=== PATIENT | female | born 1965 | race Caucasian/White ===

== ENCOUNTER 2023-11-16 09:03 | Outpatient (CLI) | payer BC, SELFPAY ==
--- NOTE | 2023-11-16 09:11 | XR_ITS ---
FINAL REPORT CLINICAL HISTORY: Foot Pain FINDINGS: RIGHT FOOT 3 views of the right foot were obtained. There is no acute fracture or dislocation. There are advanced degenerative changes at the first MTP joint. No acute soft tissue abnormality is seen. IMPRESSION: Advanced degenerative changes of the first MTP joint. Reviewed, Interpreted and Dictated by Mary Chang MD Transcribed by Arlene Pedroza Authenticated and . [facility]
--- NOTE | 2023-11-16 09:11 | XR_ITS ---
FINAL REPORT CLINICAL HISTORY: Foot Pain FINDINGS: LEFT FOOT Three views of the left foot demonstrate no acute fracture or dislocation. There are postoperative changes of prior bunionectomy. Degenerative disease is seen, most pronounced at the first MTP joint. IMPRESSION: Postoperative and degenerative changes as above. Reviewed, Interpreted and Dictated by Mary Chang MD Transcribed by Arlene Pedroza Authenticated and [facility]
--- NOTE | 2023-11-16 11:32 | ECG_ITS ---
APPROVED REPORT Exam: Resting ECG HR:57 bpm ECG Measurements Heart Rate 57 AXES OK 153 P 63 QRSd 85 QRS 52 QT 425 T 47 QTc 420 Conclusion SINUS BRADYCARDIA BORDERLINE ECG UNCONFIRMED REPORT Electronically signed by : Renato Del Rio MD 11/18/2023 07:12:24
[2023-11-16 11:57] LABS: Basophils # 0.1 K/mm3 (0-0.2); Basophils % 0.7 % (0.1-2.0); Eosinophils # 0.3 K/mm3 (0.0-0.4); Eosinophils % 2.7 % (0.1-12.0); Hematocrit 46.2 % (37.0-47.0); Hemoglobin 15.7 g/dL (12.2-16.2); Lymphocytes % 32.1 % (10-50); Mean Corpuscular HGB Conc 33.9 g/dL (31.8-35.4); Mean Corpuscular Hemoglobin 32.2 pg (27.0-31.2); Mean Corpuscular Volume 94.9 fl (81-99); Mean Platelet Volume 8.4 fl (7.4-10.4); Monocytes # 0.5 K/mm3 (0.1-1.0); Monocytes % 5.6 % (1.7-9.3); Neutrophils # 5.5 K/mm3 (1.8-7.8); Neutrophils % 58.9 % (37.0-80.0); Platelet Count 255 K/mm3 (142-424); Red Blood Count 4.86 M/mm3 (4.20-5.40); Red Cell Distribution Width 14.1 % (11.5-17.5); White Blood Count 9.4 K/mm3 (4.8-10.8)
[2023-11-16 12:33] LABS: Erythrocyte Sedimentation Rate 2 mm/hr (0-30)
[2023-11-16 12:42] LABS: Alanine Aminotransferase 30 U/L (12-78); Albumin/Globulin Ratio 1.6 (1.1-1.8); Alkaline Phosphatase 67 U/L (38-126); Anion Gap 8.1 mEq/L (5-15); Aspartate Amino Transferase 28 U/L (14-36); Bilirubin,Total 0.7 mg/dl (0.2-1.3); Blood Urea Nitrogen 23 mg/dl (7-17); Calcium 9.5 mg/dl (8.4-10.2); Carbon Dioxide 29 mmol/L (22.0-30.0); Chloride 104 mmol/L (98-107); Estimated Glomerular Filt Rate 102 ml/min (>60); GFR (African American) 123 ML/MIN (>60); Globulin 2.5 g/dL (1.3-3.2); Glucose 80 mg/dl (74-100); Potassium 4.1 mmoL/L (3.5-5.1); Sodium 137 mmol/L (136-145); Total Protein,Serum 6.5 g/dl (6.3-8.2)
[2023-11-16 13:31] LABS: Vitamin B12 841 pg/mL (239-931)
[2023-11-24 10:24] LABS: 1,25 Dihydroxy Vitamin D 30 pg/mL (.); 1,25-Dihydroxy, Vitamin D-2 <10 pg/mL (.); 1,25-Dihydroxy, Vitamin D-3 30 pg/mL (.)
== END 2023-11-16 23:59 | disposition home or self-care (01) ==
PROVIDERS: PCP Family Medicine Geriatric Medicine; Visit Provider Podiatrist
DX: Z01.818 Encounter for other preprocedural examination (principal); M79.671 Pain in right foot; M79.672 Pain in left foot; E66.9 Obesity, unspecified; Z68.33 Body mass index [BMI] 33.0-33.9, adult
CPT/HCPCS: 36415; 73630; 80053; 82607; 82652; 85025; 85651; 86140; 93005

== ENCOUNTER 2023-11-25 09:39 | Day surgery (SDC) | payer BC, SELFPAY ==
[2023-11-23 13:48] VITALS: BMI 32.5
[2023-11-25] VITALS (7 sets, daily range): BP systolic 135–164; BP diastolic 60–85; PULSE 60–84; RESP 16–19; TEMP 36.3–36.9; O2SAT 91–97
[2023-11-25] MEDS: LACTATED RINGERS 1000ML 1,000 ML 25 ML IV (10:21)
[2023-11-25] MEDS: CEFAZOLIN SODIUM 2 GM in 0.9 % SODIUM CHLORIDE 100 ML IV (13:15)
--- NOTE | 2023-11-25 16:00 | XR_ITS ---
PROCEDURE INFORMATION: Exam: XR Right Foot Exam date and time: 11/25/2023 5:22 PM Age: 58 years old Clinical indication: Screening exam; Post op 1st mtpj ad, ht 2-5; Prior surgery; Surgery date: Post-operative (0-2 days); Surgery type: Right foot TECHNIQUE: Imaging protocol: Radiologic exam of the right foot. Views: 3 or more views. COMPARISON: SD XR FOOT RT 2V 11/25/2023 4:30 PM FINDINGS: Bones/joints: Arthrodesis with K-wires noted in the 1st through 5th digits. Interval resection of the 2nd metatarsal head as well as the 1st metatarsal head and 1st proximal phalangeal joint. Surgical fixation hardware along the medial aspect of the 1st metatarsal. Soft tissues: Normal. IMPRESSION: Postsurgical changes without acute abnormality
--- NOTE | 2023-11-25 16:03 | SUR.OPER ---
1329- MD gave verbal orders to call family to let them know surgery has begun. Verbal orders repeated and correct. Spoke to friend of patient, Tito, and provided the above update per Dr Gomez. 1340- tourniquet up at a pressure of 250. 1350- M [address] GRADER in to take over for the remainder of the case. Porfirio [address] GRADER out. 1440- tourniquet time at an hour. MD made aware and gave verbal orders to add 30 minutes. Verbal orders repeated and correct. 30 minutes added to tourniquet time. 1445- verbal orders given by Dr Gomez to contact family and let them know the patient is doing well, surgery is going as planned, and we are about senior care though with the surgery. Orders repeated back and correct. Called patients friend, Tito, and gave him the update as above. 1510- tourniquet time at an hour and a half. MD made aware and gave verbal orders to add 30 minutes to tourniquet time. verbal orders repeated and correct. 30minutes added. 1540- tourniquet at 2 hours. Md aware and verbal orders given to deflate tourniquet for 15 minutes. verbal orders repeated and correct. tourniquet deflated. 1555- MD made aware tourniquet deflated. Md gave verbal orders to inflate tourniquet again. verbal orders repeated and correct. tourniquet inflated again. 1620- MD gave verbal orders to update family of patient that we are beginning to close and that she will find them when the patient is in recovery to discuss her surgery. orders repeated back and correct. Spoke to patients friend Tito and gave update as above. He stated he would be in the waiting room. 1625- tourniquet time of 30 minutes, MD gave verbals to add 30 more minutes. verbal orders repeated and correct 30 minutes added
--- NOTE | 2023-11-25 16:37 | XR_ITS ---
PROCEDURE INFORMATION: Exam: XR Right Foot Exam date and time: 11/25/2023 4:30 PM Age: 58 years old Clinical indication: Screening exam; Intra op right foot; Additional info: Right foot in or. 1:28 min fluoro. 1.39 mgy TECHNIQUE: Imaging protocol: Radiologic exam of the right foot. Views: 1 or 2 views. COMPARISON: SD XR FOOT RT 2V 11/25/2023 4:30 PM FINDINGS: Bones/joints: Intraoperative fluoroscopic images demonstrating multi articular arthrodesis and partial resection of the 1st metatarsal head. Soft tissues: Normal. IMPRESSION: Intraoperative fluoroscopic images without acute pathology. Please correlate with surgical notes for findings.
--- NOTE | 2023-11-25 17:22 | P.PNANES_ITS ---
[facility] Anesthesia Record Part I Anesthesia Record I Intake, IV Amount: 1,900 Hydration: Adequate Estimated blood loss (mL): 25 Urine output (mL): 0 Blood Products used (#): none Blood Pressure: 135/72 SaO2: 92 Pulse Rate: 84 Airway Patency: Patent Respiratory Rate: 18 Temperature: 98.5 F Patient is:: Awake (Talking after removal of oral airway), Oral/Nasal airway (10.0 oral airway. Removed upon arrival to PACU.) and Stable Stable to PACU at:: 17:18
--- NOTE | 2023-11-25 17:29 | EXP.OP.NOTE ---
Date of procedure: 11/25/23 Pre-op Diagnosis:: Right hallux valgus Right elongated second metatarsal Right foot metatarsalgia Hammertoes 2?5 Post-op Diagnosis:: Same Procedure performed:: Right 1st MTPJ arthrodesis (44176) 2nd MPJ capsulotomy (92334) 2nd partial metatarsal head resection (13690) Autograft bone harvest () Hammertoe repair x4 (08410) Reconstruction of angular 5th toe deformity (54641) Partial excision phalanx (97380) Right foot exostectomy Surgeon:: Cindy Gomez DPM MOTION PICTURE FILM EXAMINER:: Remi Khan and Deepika Fraga Anesthesia: GETA and regional (R popliteal regional nerve block) Estimated blood loss (mL): 40 Clinical Note:: Patient is a 58-year-old female who presents with crepitus and bunion pain to the right great toe. X-rays reviewed and discussed with patient in office today. She has been seen for several years by Dr. Walter larsen in [place]. And was referred for surgical evaluation as she has failed conservative care which has included: modification of activity and shoe gear, taping, strapping, inserts, stretching, ice, elevation, NSAIDs. After a long discussion with the patient in regards to the conservative versus surgical treatment for the bunion deformity, the patient has elected to proceed with surgery because they have failed conservative treatment and continue to have pain and worsening symptoms affecting daily activities. The patient has been instructed on the planned procedure, all risk versus benefits of the procedure to include bleeding, infection, nerve and blood vessel damage, need for further surgery, delay in healing of soft tissue or bone, failure of bones to heal, non-union, mal-union, prolonged pain and recovery, prolonged swelling, CRPS/RSD, DVT/PE and anesthetic complications including . No guarantees were given. All questions fully answered. The patient verbalized understanding and agreed to proceed with surgery. Written consent was obtained. Postop meds: Hurst, gabapentin, ketorolac, zofran, motrin. Operative findings:: Right first MTPJ [id number] arthritic deformity with sclerotic bone noted. Overgrowth of the entire proximal phalanx both with dorsal and plantar spurring on the phalanx and first metatarsal. There was 85 to 90% of cartilage damage and wear on the joint. Second metatarsal head had 20% cartilage damage noted medially. Bone was soft. When attempting to place implant, dorsal 2nd metatarsal neck fractured. Decision was made to convert to partial metatarsal head resection. Hammertoes 2-5 noted with PIPJ contracture. Post first MTPJ arthrodesis, range of motion assessed and there was mild equinus noted. Patient able to be reduced to neutral so tendo Achilles lengthening not performed. Modifier: an extra 35 mins was spent on case due to poor bone quality and the need to convert from osteotomy with implant to partial 2nd metatarsal resection. Operative note:: On this date and time patient was deemed an appropriate surgical candidate. With informed consent signed, the patient was taken to the operating theater after regional popliteal, adductor canal nerve block by anesthesia. Patient was positioned supine. General anesthesia was induced. IV Ancef given. Tourniquet was applied to the right thigh @250mmHg. The right lower extremity was prepped and draped in normal sterile fashion. Right foot calcaneal autograft bone harvest: Attention was directed to the lateral foot where incision was mapped out over the lateral calcaneus. Full-thickness dissection down to level of bone. A bone harvester Was utilized to harvest 4 cc of calcaneal autograft, which was used at the first MTPJ fusion site. Incision flushed with saline and skin closed with nylon. Right foot exostectomy: Attention was directed distally to the HIPJ, where ronguer and power rasp was used to remove dorsal spurring from distal phalanx and proximal phalanx. Right first MPJ arthrodesis: The tourniquet was inflated at 250 mmHg. Attention was directed to the first MPJ where an incision was mapped out. Full-thickness dissection with care to maintain surgical hemostasis to safely retract neurovascular structures. There was significant bony exostosis noted over the first metatarsal with a loose free fragment of bone. It was excised in total and sent to pathology as specimen. Abnormal spurring on the first metatarsal and exostosis noted from the base of the proximal phalanx. There was severe arthritic changes noted with wearing down of the cartilage on both the metatarsal head and proximal phalanx. Dorsal as well as medial, lateral spurring noted. Sesamoids were also noted to be arthritic. Soft tissue surrounding the first MPJ was released. A McGlamry elevator was used to pass underneath the metatarsal heads releasing more of the contracture. Utilizing hand instrumentation in the form of ronguer, the osteophytes were removed and some of the spurs were resected. Next utilizing reamers the base of the proximal phalanx and the metatarsal head were prepared. The remaining portion of the cartilage was removed. The subchondral plate was fenestrated utilizing 1.7mm drill. Joint was prepped down to the level of good healthy cancellous bleeding bone. Power rasp was used to smooth the joint and remaining spurring. The wound was flushed with copious amounts of saline. The autograft bone graft was then inserted into the joint. At this point, the joint was reduced and temporary fixation inserted with a 0.062 smooth K wire. Position was checked under intra-op fluoroscopy. A 3.5 mm compression lag screw was inserted from distal medial to proximal lateral. Adequate compression noted. Remaining bone graft was then inserted into the joint. Vilex 1st MPJ locking plate was inserted in standard technique. 2.7mm screws x 3 were inserted distally into the proximal phalanx. This was followed by a 3.5mm intra-fragmentary compression screw to the proximal metatarsal, followed by 2 x 3.5mm screws. Good apposition and position was noted. X-ray confirmed position and hardware stable. The remaining portion of the autograft was packed around the fusion site. 15 blade was used to resect the redundant tissue dorsal medial. 2-0, 3-0 Vicryl was used to close deep and subcutaneous tissue in a running fashion. 3-0 Nylon was used to close skin. Skin cleansed. Right 2nd partial metatarsal resection, application of amniotic: Second metatarsal was noted to be elongated. Linear incision made over the second MTPJ full-thickness down to the level of the tendon. Capsulotomy performed to the second MTPJ releasing joint contracture. McGlamery elevator used to pass under the plantar aspect of the joint releasing adhesions. Next sagittal saw was used to make a osteotomy in the metatarsal neck. There was some wearing down of the metatarsal head. Plan was to utilize a cannulated implant to secure the osteotomy. However unremittent insertion of the implant, the entire dorsal aspect of the metatarsal head and neck fractured. The bone just proximal to the site was soft. Attempt was made to fixate the fracture but there was not enough good healthy bone to accomplish this. So decision was made to remove the second fractured metatarsal head and neck, converting to a partial metatarsal resection. Wound was flushed with saline. The distal soft tissue attachments were reapproximated and sutured to the soft tissue from the proximal phalanx base which offered some stability to the joint. A piece of amniotic graft was applied around the joint site to prevent readhesions and scar tissue formation. Hammertoe repair 2?5: Separate incisions were made over the dorsal aspect of the PIPJ's 2?5. Full-thickness dissection down to the level of the tendon. Transverse tenotomy performed. Release of the PIPJ. The head of the proximal phalanx 2?5 was resected. On the second third and fourth toes the base of the middle phalanx was also resected down to level good healthy cancellous bone. All wounds were flushed. Next attempt was made on the second toe to insert a digital toe implant however due to the quality of the bone the implant would not hold so decision was made to convert to a smooth K wire. K wires were also utilized into the middle phalanx retrograded out the tip of the toe and back down to the base of the proximal phalanx. Intraoperative fluoroscopy was utilized to check the position and alignment and was deemed to be appropriate and stable. The K wires in the third fourth and fifth toes and at the base of the proximal phalanx and did not enter into the metatarsals. Wounds were flushed. Vicryl used to reapproximate the extensor tendons. Subcutaneous tissue was reapproximated with Vicryl. Nylon used to reapproximate skin in interrupted fashion. Reconstruction of angular 5th toe deformity: Due to the angular deformity of the fifth toe a wedge resection was taken out of the skin prior to closure. The skin was reapproximated reducing the adductovarus deformity of the fifth toe. The tourniquet was deflated after 120 mins and immediate hyperemic response was noted to the digits. The tourniquet was left deflated for 20 minutes prior to reinflation. The tourniquet was then reinflated and at the end of the case the current tourniquet was deflated after 60 minutes and immediate hyperemic response was noted to the digits. The wounds were cleansed. Xeroform applied to the incision and pin sites. Betadine soaked gauze applied to the incisions followed by a dry sterile dressing. The patient was awoken from anesthesia and transferred to recovery with vital signs stable and neurovascular status intact. She appeared to tolerate procedure and anesthesia well without complication. Materials: Vilex anatomic 5 degree 1st MPJ plate, 2.7mm locking screw x3, 3.5mm locking screws x2, 3.5mm non locking screw x1, 5cc Bend biomatrix, smooth K wires: 0.062 x1, 0.045 x4 Discharge/Plan: D/C home today when ready and vital signs stable. Patient is to maintain dressing clean dry and intact. Ice top of right foot and elevate on two pillows. Polar pack behind knee. NWB to the RLE with DME (has crutches, rolling knee scooter). Rx for Oxy, Gabapentin, Ketorolac, Zofran, Motrin given. Recommend vitamin D supplement. Obtain post op films, right foot, 3 views. Follow up with me in 1 week. Tourniquet time (min): 180 Condition: stable Disposition: same day Specimens:: Right first MTPJ bone Complications:: None
--- NOTE | 2023-11-27 06:43 | P.PNANES_ITS ---
[facility] Anesthesia Record Part II Anesthesia Record Part II Discharge Time: 17:43 Destination: Surgical Day Care (OP Surgery) PACU nurse assessment reviewed?: Yes Patient Condition:: Good Anesthesia Complications:: None Swallowing reflex intact?: Yes Airway Patency: Patent Cyanosis?: No Blood Pressure: 146/83 SaO2: 94 Respiratory Rate: 16 Pulse Rate: 72 Temperature: 97.4 F Mental Status: Alert & Oriented Pain level:: 0 Nausea and/or vomitting:: None Intake, IV Amount: 1,900 Hydration: Adequate
[2023-11-27 06:44] VITALS: BP 146/83; PULSE 72; RESP 16; TEMP 36.3; O2SAT 94
== END 2023-11-25 18:03 | disposition home or self-care (01) ==
PROVIDERS: PCP Family Medicine Geriatric Medicine; Visit Provider Podiatrist
PROC: (CPT 28285; principal; 2023-11-25 11:45)
PROC: (CPT 28285; 2023-11-25 11:45)
PROC: (CPT 28285; 2023-11-25 11:45)
PROC: (CPT 28285; 2023-11-25 11:45)
DX: M20.41 Other hammer toe(s) (acquired), right foot (principal); M20.11 Hallux valgus (acquired), right foot; M77.41 Metatarsalgia, right foot
CPT/HCPCS: 28285; 28308; 28750; 28270; 73620; 73630; 76000; C1713; C1776; C9144; J0690; J1885; J2250; J2405; J3010; J7120

== ENCOUNTER 2023-12-24 08:09 | Outpatient (CLI) | payer BC, SELFPAY ==
--- OUTSIDE RECORDS SUMMARY | 2023-12-24 08:11 | XMS_ITS | Patient Health Record ---
Author Organization [facility] Address [address] [place] [address] Care Team Providers Care Javascript Developer Name Role Phone Unknown, PCP Primary Care Provider Unavailabl e Reason For Referral No Information Medications Medication SIG (Take, Route, Frequency, Duration) Notes Start Date End Date Status Atorvastatin Calcium 10 MG 1 tab(s) orally once a day (at bedtime) Active Triamterene 25MG 1 CAP(S) ORALLY ONCE A DAY *Please review and pick correct strength-formulatio n from Medispan options. If intended option is not shown, discontinue and re-order from Quick Search* Active Immunizations Vaccine Route Administration Date Status Comme nts PFIZER Covid 19 3rd Dose (0.3ml) 12yr & up IM Intramuscular 04/05/2021 Administered PFIZER Covid Bivalent 12yr and up Additional Dose (0.3mL) IM Intramuscular 06/14/2022 Administered Plan Of Treatment Pending Test Test Name Order Date Influenza Screen(IH) 04/28/2014 Rapid Strep Screen IH 04/28/2014 Insurance Providers Payer Name Payer Address Payer Phone Subscriber Number Group Number Insured Name Patient Relationship to Insured Coverage Start Date Coverage End Date [facility] [address] [place] [address] [phone] [id number] MALIA YANES Self - patient is the insured Medical (General) History Medical History History ICD Code HTN High triglycerides
--- OUTSIDE RECORDS SUMMARY | 2023-12-24 08:11 | XMS_ITS | Patient Health Record ---
Author Organization [facility] Stephanie vidales Billing Info Address [address] [place], [place] [address] Support Name Relationship Address Phone Adeline Boswell Guarantor Unknown Reason For Referral No Information Social History Tobacco Use: Social History Observation Description Date Smoking Status WARNING: Information temporarily unavailable Tobacco Status: Question Answer Notes Patient is a never smoker Plan Of Treatment No Information Insurance Providers Payer Name Payer Address Payer Phone Subscriber Number Group Number Insured Name Patient Relationship to Insured Coverage Start Date Coverage End Date [facility] [place], [place] [id number] Adeline Boswell Self - patient is the insured 2
--- OUTSIDE RECORDS SUMMARY | 2023-12-24 08:12 | XMS_ITS | Patient Health Record ---
Author Organization [facility] Address [address] [place] [address] Support Name Relationship Address Phone Aretha Hunt Emergency Contact [address] [facility] [place] [address] Adeline Boswell Guarantor Unknown [phone] Reason For Referral No Information Medications Medication SIG (Take, Route, Frequency, Duration) Notes Start Date End Date Status Promethazine Hydrochloride 25 mg 1 tab(s) orally every 6 hours PRN n/v for 10 days 11/06/2016 Active CeleXA 40 mg 1 tab(s) orally once a day for 30 day(s) Active Acidophilus Probiotic Blend - 1 cap(s) orally once a day Active Fish Oil 1200 mg 2 cap(s) orally 2 ti mes a day Active cranberry Active multivitamin Multiple Vitamins 1 tab(s) chewed once a day Active hydrochlorothiazide-triamter debra 50 mg-75 mg 1 tab(s) orally once a day for 30 days 08/23/2018 Active Aspir 81 81 mg 1 tab(s) orally once a day Active indomethacin 50 mg 1 cap(s) orally 3 ti mes a day for 14 days 08/31/2018 Active Vitamin D3 1000 intl units 1 cap(s) oral ly once a day for 30 day(s) Active omeprazole 40 mg 1 cap(s) orally once a day for 30 08/24/2017 Active vitamin E 1000 intl units 1 cap(s) orall y once a day Active Immunizations Vaccine Route Administration Date Status Comme nts Tdap >7 years Unknown 03/04/2017 Administered Influenza IM Intramuscular 03/16/2008 Administered Influenza IM Intramuscular 01/27/2012 Administered Influenza IM Intramuscular 03/06/2016 Administered Influenza Unknown 03/03/2018 Administered Influenza Unknown 02/02/2019 Administered Social History Tobacco Use: Social History Observation Description Date Smoking Status WARNING: Information temporarily unavailable Tobacco Use Question Answer Notes Additional Findings: Tobacco User Quit smoking in 04/24/15 Current smoking status: Quit Problems Problem Type SNOMED Code ICD Code Onset Dates Problem Status W/U Status Risk Notes Problem Mixed hyperlipidemia (593378179) Hyperlipidemia, Mixed (272.2) Active confirmed Problem Depression (494066569) Depression (311) Active confirmed Problem Benign hypertension (14294649) Hypertension, benign (401.1) Active confirmed Problem Essential hypertension (34164747) Essential (primary) hypertension (I10) Active confirmed Problem Mixed hyperlipidemia (543642005) Mixed hyperlipidemia (E78.2) Active confirmed Problem Dysthymia (95998561) Dysthymic disorder (F34.1) Active confirmed Problem Polyneuropathy (55241634) Polyneuropathy, unspecified (G62.9) Active confirmed Problem Gastro-esophageal reflux disease without esophagitis (737049322) Gastro-esophageal reflux disease without esophagitis (K21.9) Active confirmed Problem Abnormal results of liver function studies (212252738) Abnormal results of liver function studies (R94.5) Active confirmed Plan Of Treatment No Information Insurance Providers Payer Name Payer Address Payer Phone Subscriber Number Group Number Insured Name Patient Relationship to Insured Coverage Start Date Coverage End Date [facility] [address] [place] [address] [id number] Adeline Boswell Self - patient is the insured Medical (General) History Medical History History ICD Code dependent edema right worse than left HTN normal systolic,EF>55% Atrial fibrillation Squamous cell carcinoma Surgical History Surgery Date(Month/Year) R KNEE 2007 R/L FOOT 1997 L FOOT NEUROMA REMOVED 1998 R BREAST LYMPH NODE REMOVED 2003 cholecystectomy 2017
--- NOTE | 2023-12-24 08:13 | XR_ITS ---
FINAL REPORT CLINICAL HISTORY: Foot Pain COMPARISON: 11/25/2023 FINDINGS: RIGHT FOOT 3 views of the right foot were obtained. There is a sideplate and screws securing the first metatarsal phalangeal joint. Fusion graft material is present. There has been resection of the distal second metatarsal. K wires are noted in all 5 digits. There is no acute fracture or dislocation. Visualized joint spaces are normally aligned. Soft tissues are unremarkable. IMPRESSION: Stable postoperative changes without acute process. Reviewed, Interpreted and Dictated by Jarrett Pleitez MD Transcribed by Ketty Arriaga Authenticated and [facility]
== END 2023-12-24 23:59 | disposition home or self-care (01) ==
LOC: RAD 08:10
PROVIDERS: PCP Family Medicine Geriatric Medicine; Visit Provider Podiatrist
DX: M79.671 Pain in right foot (principal); Z98.890 Other specified postprocedural states
CPT/HCPCS: 73630

== ENCOUNTER 2024-01-07 11:01 | Outpatient (CLI) | payer BC, SELFPAY ==
--- NOTE | 2024-01-07 11:04 | XR_ITS ---
FINAL REPORT CLINICAL HISTORY: Postoperative COMPARISON: 12/24/2023 FINDINGS: RIGHT FOOT 3 views of the right foot were obtained. There is no acute fracture or dislocation. there are postoperative changes of fusion of the 1st MTP. There are multiple soft tissue calcifications in this region. There are postoperative changes of the distal 2nd metatarsal. Previously seen K-wires have been removed. Visualized joint spaces are normally aligned. Soft tissues are unremarkable. IMPRESSION: Postoperative changes without acute bony abnormality. Reviewed, Interpreted and Dictated by Hugo Ashraf III, MD Transcribed by Arlene Pedroza Authenticated and [facility]
== END 2024-01-07 23:59 | disposition home or self-care (01) ==
LOC: RAD 11:02
PROVIDERS: PCP Family Medicine Geriatric Medicine; Visit Provider Podiatrist
DX: Z98.890 Other specified postprocedural states (principal); R60.9 Edema, unspecified
CPT/HCPCS: 73630

== ENCOUNTER 2024-01-28 09:39 | Outpatient (CLI) | payer BC, SELFPAY ==
--- NOTE | 2024-01-28 09:47 | XR_ITS ---
FINAL REPORT CLINICAL HISTORY: Foot pain COMPARISON: 01/07/2024 FINDINGS: RIGHT FOOT: Three views show postoperative changes of fusion of the first MTP joint. There has been been surgical resection of the second metatarsal head, unchanged since the prior exam. There are also postoperative changes of the DIP joints of the 2nd through 5th toes. No acute bony abnormalities are identified. IMPRESSION: Extensive postoperative changes of the right foot, stable since the prior exam of January 06, without acute bony abnormality. Reviewed, Interpreted and Dictated by Maricruz Cardenas MD Transcribed by Anila Morin Authenticated and [facility]
== END 2024-01-28 23:59 | disposition home or self-care (01) ==
LOC: RAD 09:39
PROVIDERS: PCP Family Medicine Geriatric Medicine; Visit Provider Podiatrist
DX: M79.671 Pain in right foot (principal)
CPT/HCPCS: 73630

== ENCOUNTER 2024-02-15 13:45 | Outpatient (CLI) | payer BC, SELFPAY ==
--- NOTE | 2024-02-15 14:04 | XR_ITS ---
FINAL REPORT CLINICAL HISTORY: Left foot pain COMPARISON: 11/16/2023 FINDINGS: LEFT FOOT Three views of the left foot demonstrate no acute fracture or dislocation. There is mild narrowing at the first metatarsophalangeal and first interphalangeal joints. The soft tissues are unremarkable. IMPRESSION: Degenerative changes with no acute bony abnormality. Reviewed, Interpreted and Dictated by Jarrett Pleitez MD Transcribed by Kim Lechuga Authenticated and [facility]
[2024-02-15 14:09] LABS: Basophils # 0.1 K/mm3 (0-0.2); Basophils % 1.1 % (0.1-2.0); Eosinophils # 0.3 K/mm3 (0.0-0.4); Hematocrit 42.4 % (37.0-47.0); Hemoglobin 15.3 g/dL (12.2-16.2); Lymphocytes # 2.9 K/mm3 (0.7-4.5); Lymphocytes % 30.3 % (10-50); Mean Corpuscular Hemoglobin 33.1 pg (27.0-31.2); Mean Corpuscular Volume 91.9 fl (81-99); Mean Platelet Volume 8.4 fl (7.4-10.4); Monocytes # 0.6 K/mm3 (0.1-1.0); Monocytes % 5.7 % (1.7-9.3); Neutrophils # 5.8 K/mm3 (1.8-7.8); Neutrophils % 59.8 % (37.0-80.0); Platelet Count 275 K/mm3 (142-424); Red Blood Count 4.61 M/mm3 (4.20-5.40); Red Cell Distribution Width 14.3 % (11.5-17.5); White Blood Count 9.7 K/mm3 (4.8-10.8)
[2024-02-15 14:40] LABS: Albumin Level 4.1 g/dl (3.5-5.0); Chloride 106 mmol/L (98-107)
[2024-02-15 14:41] LABS: Potassium 3.8 mmoL/L (3.5-5.1); Sodium 138 mmol/L (136-145)
[2024-02-15 14:43] LABS: Alanine Aminotransferase 28 U/L (12-78); Anion Gap 7.8 mEq/L (5-15); Aspartate Amino Transferase 26 U/L (14-36); Blood Urea Nitrogen 24 mg/dl (7-17); Carbon Dioxide 28 mmol/L (22.0-30.0); Estimated Glomerular Filt Rate 85 ml/min (>60); GFR (African American) 103 ML/MIN (>60)
[2024-02-15 14:44] LABS: Albumin/Globulin Ratio 1.6 (1.1-1.8); Alkaline Phosphatase 83 U/L (38-126); Bilirubin,Total 0.5 mg/dl (0.2-1.3); Calcium 10.1 mg/dl (8.4-10.2); Globulin 2.5 g/dL (1.3-3.2); Glucose 137 mg/dl (74-100); Total Protein,Serum 6.6 g/dl (6.3-8.2)
[2024-02-15 15:51] LABS: Erythrocyte Sedimentation Rate 9 mm/hr (0-30)
== END 2024-02-15 23:59 | disposition home or self-care (01) ==
LOC: RAD 13:47
PROVIDERS: PCP Family Medicine Geriatric Medicine; Visit Provider Podiatrist
DX: M79.672 Pain in left foot (principal); R60.9 Edema, unspecified; L89.892 Pressure ulcer of other site, stage 2; B95.4 Other streptococcus as the cause of diseases classified elsewhere; B95.7 Other staphylococcus as the cause of diseases classified elsewhere
CPT/HCPCS: 36415; 73630; 80053; 85025; 85651; 86140; 87070; 87077; 87186; 87205

== ENCOUNTER 2024-02-16 10:46 | Outpatient (CLI) | payer BC, SELFPAY ==
--- OUTSIDE RECORDS SUMMARY | 2024-02-16 10:48 | XMS_ITS | Patient Health Record ---
Author Organization [facility] Stephanie vidales Billing Info Address [address] [place] [id number] Support Name Relationship Address Phone Adeline Boswell Guarantor Unknown Reason For Referral No Information Plan Of Treatment No Information Insurance Providers Payer Name Payer Address Payer Phone Subscriber Number Group Number Insured Name Patient Relationship to Insured Coverage Start Date Coverage End Date [facility] NON-HMO [address] [place], [place] [id number] Adeline Boswell Self - patient is the insured 2
--- OUTSIDE RECORDS SUMMARY | 2024-02-16 10:48 | XMS_ITS | Patient Health Record ---
Author Organization [facility] Address [address] [place] [address] Care Team Providers Care Music Education Director Name Role Phone Unknown, PCP Primary Care [...] Coverage Start Date Coverage End Date [facility] [address] [place] [address] [id number] MALIA YANES Self - patient is the insured Medical (General) History Medical History History ICD Code HTN High triglycerides
--- NOTE | 2024-02-16 10:49 | XR_ITS ---
FINAL REPORT CLINICAL HISTORY: post op FINDINGS: RIGHT FOOT 3 views of the right foot were obtained. A sideplate and screws bridge a fusion of the first metatarsal phalangeal joint. The overall position of the hardware is stable when compared to the prior exam of January 27. There is soft tissue swelling surrounding the operative site, with ossific fragments, also stable since the prior exam. There has been resection of the distal second metatarsal, also stable since the prior exam. IMPRESSION: Postoperative changes of the first metatarsal phalangeal joint and the head of the second metatarsal, stable when compared to the prior exam. Reviewed, Interpreted and Dictated by Jarrett Pleitez MD Transcribed by Anila Morin Authenticated and [facility]
--- OUTSIDE RECORDS SUMMARY | 2024-02-16 10:49 | XMS_ITS | Patient Health Record ---
Author Organization [facility] Address [address] [place] [address] Support Name Relationship Address Phone Aretha Hunt Emergency Contact [address] [facility] [place] [address] Adeline Boswell Guarantor Unknown [phone] Reason For Referral No Information Medications Medication [...] W/U Status Risk Notes Problem Mixed hyperlipidemia (251099218) Hyperlipidemia, Mixed (272.2) Active confirmed Problem Depression (866771189) Depression (311) Active confirmed Problem Benign hypertension (92209844) Hypertension, benign (401.1) Active confirmed Problem Essential hypertension (15857816) Essential (primary) hypertension (I10) Active confirmed Problem Mixed hyperlipidemia (813121765) Mixed hyperlipidemia (E78.2) Active confirmed Problem Dysthymia (29606286) Dysthymic disorder (F34.1) Active confirmed Problem Polyneuropathy (25743613) Polyneuropathy, unspecified (G62.9) Active confirmed Problem Gastro-esophageal reflux disease without esophagitis (422066417) Gastro-esophageal reflux disease without esophagitis (K21.9) Active confirmed Problem Abnormal results of liver function studies (073985244) Abnormal results of liver function studies (R94.5) Active confirmed Plan Of Treatment No Information Insurance Providers Payer Name Payer Address Payer Phone Subscriber Number Group Number Insured Name Patient Relationship to Insured Coverage Start Date Coverage End Date [facility] [address] [place] [address] [id number] Adeline Boswell Self - patient is the insured Medical (General) History Medical History History ICD Code dependent edema right worse than left HTN normal systolic,EF>55% Atrial fibrillation Squamous cell carcinoma Surgical History Surgery Date(Month/Year) R KNEE 2007 R/L FOOT 1997 L FOOT NEUROMA REMOVED 1998 R BREAST LYMPH NODE REMOVED 2003 cholecystectomy 2017
== END 2024-02-16 23:59 | disposition home or self-care (01) ==
LOC: RAD 10:47
PROVIDERS: PCP Family Medicine Geriatric Medicine; Visit Provider Podiatrist
DX: Z98.890 Other specified postprocedural states (principal)
CPT/HCPCS: 73630

== ENCOUNTER 2024-04-22 16:43 | Outpatient (CLI) | payer BC, SELFPAY ==
--- NOTE | 2024-04-22 16:44 | MR_ITS ---
PROCEDURE INFORMATION: Exam: MR Left Lower Extremity Other Than Joint Without Contrast; Foot Exam date and time: 04/22/2024 5:11 PM Age: 59 years old Clinical indication: Pain; Foot; Left; Additional info: R/O foreign body, abscess or deep infection TECHNIQUE: Imaging protocol: Magnetic resonance imaging of the left lower extremity without contrast. Exam focused on the foot. COMPARISON: CR XR FOOT WT BEARING LT 3V 02/15/2024 2:20 PM FINDINGS: Bones/joints: No acute bone abnormalities. Articular cartilage is normal. No joint effusion. LIGAMENTS: Lisfranc ligament: Unremarkable. No evidence of tear. TENDONS: Flexor tendons of foot: Unremarkable. No evidence of tear. Tibialis posterior tendon: Unremarkable as visualized. Peroneal tendons: Unremarkable as visualized. Extensor tendons of foot: Unremarkable. No evidence of tear. Tibialis anterior tendon: Unremarkable as visualized. Tarsal canal (Sinus tarsi): Unremarkable. Tarsal tunnel: Unremarkable. Soft tissues: Mild soft tissue swelling involving the medial ankle. There is no abscess.. Plantar fascia: Unremarkable as visualized. IMPRESSION: No acute findings. Only mild soft tissue swelling involving the medial malleolus. There is no abscess.
== END 2024-04-22 23:59 | disposition home or self-care (01) ==
LOC: RAD 16:44
PROVIDERS: PCP Family Medicine; Visit Provider Podiatrist
DX: M79.672 Pain in left foot (principal); L97.522 Non-pressure chronic ulcer of other part of left foot with fat layer exposed; L89.893 Pressure ulcer of other site, stage 3
CPT/HCPCS: 73718

== ENCOUNTER 2024-07-01 10:36 | Outpatient (CLI) | payer BC, SELFPAY ==
--- NOTE | 2024-07-01 11:23 | ECG_ITS ---
APPROVED REPORT Exam: Resting ECG HR:60 bpm ECG Measurements Heart Rate 60 AXES WI 189 P 56 QRSd 85 QRS 44 QT 421 T 37 QTc 422 Conclusion SINUS RHYTHM NORMAL ECG UNCONFIRMED REPORT Electronically signed by : Renato Del Rio MD 07/02/2024 13:28:06
--- NOTE | 2024-07-01 11:27 | XR_ITS ---
FINAL REPORT CLINICAL HISTORY: pre-op testing surgery COMPARISON: None FINDINGS: PA and lateral views of the chest were obtained. No acute pulmonary density is evident. There is no evidence of effusion or other pleural disease. The mediastinum has a normal appearance. The cardiac silhouette is unremarkable. IMPRESSION: Unremarkable chest exam. Reviewed, Interpreted and Dictated by Maricruz Cardenas MD Transcribed by Vania Preston Authenticated and . [facility]
[2024-07-01 11:39] LABS: Basophils # 0.1 K/mm3 (0-0.2); Basophils % 0.8 % (0.1-2.0); Eosinophils # 0.1 K/mm3 (0.0-0.4); Eosinophils % 1.4 % (0.1-12.0); Hematocrit 43.2 % (37.0-47.0); Hemoglobin 14.7 g/dL (12.2-16.2); Lymphocytes # 2.7 K/mm3 (0.7-4.5); Lymphocytes % 35.1 % (10-50); Mean Corpuscular Hemoglobin 30.5 pg (27.0-31.2); Mean Corpuscular Volume 89.6 fl (81-99); Mean Platelet Volume 10.9 fl (7.4-10.4); Monocytes # 0.6 K/mm3 (0.1-1.0); Monocytes % 7.5 % (1.7-9.3); Neutrophils # 4.2 K/mm3 (1.8-7.8); Neutrophils % 54.9 % (37.0-80.0); Platelet Count 253 K/mm3 (142-424); Red Blood Count 4.82 M/mm3 (4.20-5.40); Red Cell Distribution Width 12.7 % (11.5-17.5); White Blood Count 7.7 K/mm3 (4.8-10.8)
[2024-07-01 11:47] LABS: Alanine Aminotransferase 33 U/L (12-78); Albumin Level 4.2 g/dl (3.5-5.0); Albumin/Globulin Ratio 1.9 (1.1-1.8); Alkaline Phosphatase 67 U/L (38-126); Anion Gap 7.8 mEq/L (5-15); Aspartate Amino Transferase 36 U/L (14-36); Bilirubin,Total 0.6 mg/dl (0.2-1.3); Blood Urea Nitrogen 16 mg/dl (7-17); Calcium 9.4 mg/dl (8.4-10.2); Carbon Dioxide 29 mmol/L (22.0-30.0); Chloride 104 mmol/L (98-107); Estimated Glomerular Filt Rate 85 ml/min (>60); GFR (African American) 103 ML/MIN (>60); Globulin 2.2 g/dL (1.3-3.2); Glucose 81 mg/dl (74-100); Potassium 3.8 mmoL/L (3.5-5.1); Sodium 137 mmol/L (136-145); Total Protein,Serum 6.4 g/dl (6.3-8.2)
[2024-07-01 12:16] LABS: Erythrocyte Sedimentation Rate 6 mm/hr (0-30)
[2024-07-01 17:08] LABS: Hemoglobin A1C 5.4 % (4.0-6.0)
== END 2024-07-01 23:59 | disposition home or self-care (01) ==
LOC: PREOP 10:37
PROVIDERS: PCP Family Medicine; Visit Provider Podiatrist
DX: Z01.810 Encounter for preprocedural cardiovascular examination (principal); Z01.811 Encounter for preprocedural respiratory examination; Z01.812 Encounter for preprocedural laboratory examination
CPT/HCPCS: 71046; 80053; 83036; 85025; 85651; 86140; 93005

== ENCOUNTER 2024-07-06 06:30 | Day surgery (SDC) | payer BC, SELFPAY ==
[2024-07-01 13:08] VITALS: BMI 33.9
[2024-07-06] VITALS (9 sets, daily range): BP systolic 121–150; BP diastolic 58–76; PULSE 64–82; RESP 16–20; TEMP 36.1; O2SAT 92–98
[2024-07-06] MEDS: LACTATED RINGERS 1000ML 1,000 ML 25 ML IV (07:12)
--- NOTE | 2024-07-06 07:56 | EXP.ANES.CKL ---
[facility] Disclaimer: The information contained in this section may have been updated after the patient was seen, as this information can be updated by other users. Medical History KORY (obstructive sleep apnea) Callus of foot Neuropathy Keratosis Edema Anxiety High blood pressure Vagus nerve disorder Surgical History History of bunionectomy History of lateral meniscus repair of right knee History of sentinel lymphadenectomy History of cholecystectomy Family History Sister Cancer Grandmother Diabetes Brother Hyperlipidemia Hypertension Mother Hypertension Social History Smoking Status: Current some day smoker tobacco type: cigarettes years smoked: 4 quit status: has quit before alcohol intake: never substance use type: denies use current occupational status: employed Travel in the last 8 weeks: None adopted: No caregiver/support person: No foster care: No Have you lived/traveled outside US in past 30 days?: No Contact w/someone who lives/traveled outside US past 30 days?: No Exposure to someone with infectious disease in past 14 days?: No Do you have a fever (greater than 100.4 F or 38 C)?: No Have you tested positive for COVID-19: No Exposed to someone with COVID-19 in past 14 days?: No Do you have a sore throat?: No Do you have a cough?: No Do you have any weakness?: No Do you have any diarrhea?: No Are you experiencing any unusual bleeding?: No Do you have any muscle aches/pain?: No Do you have any abdominal pain?: No Are you experiencing loss of taste or smell?: No [facility] Anesthesia Checklist Patient Identification Patient Identification: Verbal (Name & ) Structural Data Admitted From: Home Planned Operative Procedure/s: i/d l foot Consent for Planned Operative Procedure(s) Verified: Yes NPO Status Verified Time NPO: 00:00 Additional verifications Anesthesia Reactions: Yes (pt states sat up during procedure) Hx Blood Transfusions: No Blood Transfusion Reaction: No Airway Assessment Mallampati Score:: Class II C-Spine Mobility Assessed: Yes TMJ Mobility Assessed: Yes Dentition: Good Dentition Neurological Assessment Level of Consciousness: Awake, Alert and Appropriate Anesthesia Plan Anesthesia Risk discussed: Yes Anesthesia Plan: Verified ASA Class: II Anesthesia Type: General
--- NOTE | 2024-07-06 08:24 | P.OP_ITS ---
Date of procedure: 07/06/24 Pre-op Diagnosis:: Left neuropathic foot ulcer Left foot metatarsalgia/elongated 2nd metatarsal Left foot pain Hx left bunionectomy Post-op Diagnosis:: Same Procedure performed:: Incision bone cortex for osteomyelitis with open bone biopsy Partial excision metatarsal Incision and drainage below foot fascia single bursal space Excision of soft tissue mass Ulcer debridement/excision Delayed primary closure wound Surgeon:: Cindy Gomez DPM Anesthesia: local (0.5% veronica plain) Estimated blood loss (mL): 20 Clinical Note:: Patient is a 59-year-old female who presents with a neuropathic ulcer to the left subsecond metatarsal. Patient has had the ulcer on and off for several years. She reports ulcer is opened, been treated and healed. This has happened many times. Sometimes he also has secondary cellulitis resolved with oral antibiotics. Patient has had conservative care including: Custom orthotics, offloading with fracture boot immobilization, metatarsal pads, weekly wound debridements, labs, wound culture, oral antibiotics as needed. Discussed ulcer likely secondary to pressure point due to her foot type. Also discussed possibility of foreign body reaction, abscess or deep infection like osteomyelitis which would cause the wound to continue to reulcerate. Due to the increased pain to the stab second and third MTPJ and possibility of stepping on something due to patient's neuropathy, discussed surgery. Patient has had labs, x-rays and MRI of the left foot most recently 04/22/2024 which showed no obvious abscess, OM or foreign body. We discussed conservative versus surgical treatment options. We discussed surgical incision and drainage, excision of callus/ulcer, foreign manley removal if needed, partial met resection to remove 2nd met prominence. Patient understands that they could have wound healing complications including delayed healing and infection. We discussed that if the wound does not heal, it is possible that they may need further debridement. Patient understands if infection spreads into the bone, it may warrant proximal amputation and could result in further loss of digits, loss of partial foot or loss of leg. We discussed the risks and benefits in great detail. Other surgical risks include: prolonged/permanent pain and swelling, further infection requiring oral or IV antibiotics, delay in healing of soft tissue or bone, nerve or blood vessel damage, CRPS/RSD, DVT/PE, anesthesia complications, and even . All questions answered. Patient verbalized understanding. Written consent obtained. Operative findings:: Left sub 2-3rd met wound with noemi-wound callus noted. No erythema or new SOI noted. Increased edema to superior aspect of callus skin, under 2nd MTPJ. Sharp excisional full-thickness debridement thru skin into subq wound: 0.2 x 0.2 x 0.1cm, 100% granular. No purulence, drainage or malodor noted. Ulcer was excised full thickness thru skin, subq, deep fascia. Next the plantar wound was explored. There was abnormal fibrotic scar tissue and a palpable soft tissue mass noted which was excised full-thickness. The soft tissue mass look like a mixture of a fibroma and lipoma and was approximately 2 cm round. The tissue was rubbery and discolored yellowish-brown. No obvious purulence or liquefactive necrosis noted. Separate incision made over the dorsal 2nd MTPJ. I&D performed full thickness to the level of the bone. No purulence malodor or drainage noted. Sagittal saw used to incise the bone cortex of the second metatarsal and open bone biopsy taken of the second met. The bone itself was hard in texture with no obvious purulence. Due to some cortical irregularity and early arthritis at the second metatarsal head, decision was made to proceed with partial excision of the metatarsal with a partial metatarsal head resection. Operative note:: On this date and time the patient was deemed an appropriate surgical candidate. With informed consent time patient was transferred from the preoperative holding area to the operating theater placed on table in a normal supine position. Left lower extremity was prepped and draped in normal sterile fashion. Left mid calf tourniquet utilized. IV vancomycin infused. Preop ankle block given with 20cc of 0.5% Marcaine plain. Left foot incision and drainage: Attention was directed the plantar aspect of the second MTPJ where edema and minimal erythema was noted. Utilizing a 15 blade, a linear incision was made over the site. I&D performed full-thickness through skin, subcu into deep fascia 2 cm deep at the level of the bursa. There was no purulence or drainage noted, no wound culture obtained. Next hemostat used to explore the area. Left foot wound debridement/ulcer excision: 15 blade used to sharply excisionally debride ulcer full-thickness through skin into subcutaneous tissue. No signs of infection noted. Decision made to excise wound full-thickness. An elliptical incision ~3x1cm was mapped out over the wound and it was excised through skin, subcu down to the level of the fascia. Healthy bleeding edges were noted. Wound excised full-thickness is spent to pathology as a specimen. Left foot soft tissue mass removal: Area was explored for foreign body. No obvious foreign body noted. However there was a palpable soft tissue mass. Mass appeared like a fibroma and lipoma with rubbery texture and some mild discolorat ion. No purulence malodor or obvious signs of infection noted. Left foot I&D bone cortex with open bone biopsy: Due to the depth and length of time patient has had wound, it was felt appropriate to perform an incision of the bone cortex and get a bone biopsy to evaluate for osteomyelitis. A separate incision was made over the dorsal second MTPJ with a clean 15 blade. Blunt dissection carried down to level of bone. A piece of the second metatarsal head was resected and portion of the bone was sent to micro as culture and the other piece was sent to pathology for bone biopsy. Wound flushed with gentamicin irrigation. Left partial second metatarsal head resection: There was some cortical changes to the second metatarsal which could be from arthritis. No obvious infection. However decision was made to transect the second metatarsal head to relieve the plantar pressure from the elongated second metatarsal. Saw used to transect the area. The piece of the tarsal bone was sent as specimen. Gentamicin irrigation to flush all incisions. The wound was explored and no purulence was noted. Delayed primary closure wound: Postdebridement the skin edges were able to be reapproximated. Vicryl used to approximate subcutaneous tissue. Vancomycin powder inserted prior to skin closure. 2-0 nylon was used to reapproximate the skin in a vertical mattress fashion. Wound was closed completely with no opening remaining. There was no drainage, no drain inserted. Vancomycin powder applied over the incisions. 10 cc of half percent Marcaine plain were infiltrated in regional ankle block. Xerofrom, betadine soaked gauze applied with a dry sterile dressing. Tourniquet deflated and immediate hyperemic response was noted to the digits. She was woken from anesthesia and transferred to recovery with vitals stable and neurovascular status intact. Patient tolerated procedure and anesthesia well without complication. Material: Vanco powder 1g Plan: Maintain dressing clean dry and intact to left foot, reinforce as necessary. NWB in fracture boot with DME. Ok to PWB to left heel in fx boot with walker short distances. Antibiotics: Levo, Doxy as directed. X-rays left foot 3 views. Follow-up with podiatry in 1 week for skin check and dressing change. Tourniquet time (min): 40 Condition: stable Disposition: same day Specimens:: Left 2nd metatarsal bone culture Left 2nd metatarsal bone path Left foot ulcer Left fibroma/STM Complications:: None
[2024-07-06] MEDS: VANCOMYCIN HCL 1,000 MG in 0.9 % SODIUM CHLORIDE 250 ML 125 MG IV (08:30)
[2024-07-06] MEDS: BUPIVACAINE 0.5% 30ML VIAL 150 MG (08:43)
[2024-07-06] MEDS: GENTAMICIN 80 MG/2 ML VIAL (08:58)
[2024-07-06] MEDS: VANCOMYCIN 1000MG VIAL 1000 MG (08:59)
--- NOTE | 2024-07-06 09:50 | P.PNANES_ITS ---
[facility] Anesthesia Record Part I Anesthesia Record I Intake, IV Amount: 900 Hydration: Adequate Estimated blood loss (mL): 20 Urine output (mL): 0 Blood Products used (#): none Blood Pressure: 149/65 SaO2: 97 Pulse Rate: 79 Airway Patency: Patent Respiratory Rate: 16 Temperature: 96.9 F Patient is:: Drowsy and Stable Stable to PACU at:: 09:50
--- NOTE | 2024-07-06 10:00 | XR_ITS ---
FINAL REPORT CLINICAL HISTORY: s/p I D, partial met resection COMPARISON: 02/15/2024 FINDINGS: Three views of the left foot show no evidence of acute fracture. There are surgical changes from prior resection of the distal most 2nd metatarsal head. Moderate degenerative changes are noted of the 1st MTP joint. Presumed bunionectomy is noted. IMPRESSION: Postoperative changes 2nd metatarsal without new abnormality. Reviewed, Interpreted and Dictated by Maricruz Cardenas MD Transcribed by Ketty Arriaga Authenticated and [facility]
[2024-07-06] MEDS: IPRATROPIUM/ALBUTEROL 3 ML NEB IH (10:06)
--- NOTE | 2024-07-07 07:11 | EXP.ANES.II ---
[facility] Anesthesia Record Part II Anesthesia Record Part II Discharge Time: 10:15 Destination: Surgical Day Care (OP Surgery) PACU nurse assessment reviewed?: Yes Patient Condition:: Good Anesthesia Complications:: None Swallowing reflex intact?: Yes Airway Patency: Patent Cyanosis?: No Blood Pressure: 150/73 SaO2: 98 Respiratory Rate: 16 Pulse Rate: 78 Temperature: 96.9 F Mental Status: Alert & Oriented Pain level:: 0 Nausea and/or vomitting:: None Intake, IV Amount: 900 Hydration: Adequate
[2024-07-07 07:13] VITALS: BP 150/73; PULSE 78; RESP 16; TEMP 36.1; O2SAT 98
== END 2024-07-06 10:56 | disposition home or self-care (01) ==
PROVIDERS: PCP Family Medicine Geriatric Medicine; Visit Provider Podiatrist
PROC: (CPT 11042; principal; 2024-07-06 08:30)
DX: L03.116 Cellulitis of left lower limb (principal); L97.522 Non-pressure chronic ulcer of other part of left foot with fat layer exposed; Z79.899 Other long term (current) drug therapy; L84 Corns and callosities; F17.210 Nicotine dependence, cigarettes, uncomplicated; M79.672 Pain in left foot
CPT/HCPCS: 11042; 28112; 73630; 88304; 94640; 96374; C9144; J1100; J1580; J2250; J2405; J3010; J3370; J7120; J7620; S0028